=== PATIENT | male | born 1965 ===

== ENCOUNTER 2017-07-11 20:03 | Emergency (ER) | payer OTHER ==
[2017-07-11 20:15] VITALS: O2SAT 100
[2017-07-11] MEDS ORDERED: Oxycodone/Acetaminophen 5/325 mg Tab ONE (20:16)
[2017-07-11] MEDS ORDERED: Oxycodone/Acetaminophen 5/325 mg Tab PO STA (20:21)
--- NOTE | 2017-07-11 21:50 | C.PDOC ---
History Of Present Illness 52-year-old male, brought to the emergency department by EMS with complaints of wrist injury. As per EMS, patient sustained an injury to his right wrist after falling in snow today. Patient unable to give further Hx due to pain. Time Seen by Provider: 07/11/17 20:21 Chief Complaint (Nursing): Upper Extremity Problem/Injury History Per: Patient Past Medical History Reviewed: Historical Data, Nursing Documentation, Vital Signs Vital Signs: Last Vital Signs Temp 98.3 F 07/11/17 20:11 Pulse 67 07/11/17 20:11 Resp 20 07/11/17 20:11 BP 150/67 07/11/17 20:11 Pulse Ox 100 07/11/17 21:52 Family History: States: No Known Family Hx - Social History Hx Alcohol Use: Yes Hx Substance Use: No - Immunization History Hx Tetanus Toxoid Vaccination: No Hx Influenza Vaccination: No Hx Pneumococcal Vaccination: No Review Of Systems Musculoskeletal: Positive for: Other (right wrist pain and swelling) Physical Exam - Physical Exam Appears: Non-toxic, In Acute Distress, Other (Uncomfortable) Skin: Normal Color, Warm, Dry, No Rash Extremity: Tenderness, Deformity (right wrist. ), Swelling (dorsal aspect right wrist) Pulses: Left Radial: Normal, Right Radial: Normal Neurological/Psych: Oriented x3, Normal Speech, Normal Sensation ED Course And Treatment O2 Sat by Pulse Oximetry: 100 (RA) Pulse Ox Interpretation: Normal - Other Rad XR R wrist X-Ray: Interpreted by Me (comminuted impacted fracture of right wrist. ), Viewed By Me Progress Note: XR R wrist ordered and reviewed. Patient treated with PO percocet and Morphine IM. Case discussed with Dr Rizvi, recommends discharge patient with short arm splint and f/u in ortho clinic. Pt remained stable- Splint placed and pain control. Pt placed in splint by CP and checked by me. Advised to follow up with ortho Reassessment Condition: Improved Orthopedic Time Out: Side verified Procedure: Splint Type: Short Location: Arm Performed by: Mid-level Provider Diagnosis: Fracture Type: Closed, Comminuted, Angulated Location: Right Other:: Done by CP and checked by me, pt is neurovascular intact. pt placed in sling Bone: Radius Disposition Counseled Patient/Family Regarding: Diagnosis, Need For Followup, Rx Given - Disposition Referrals: [facility] at [place] [Outside] [facility], [facility] [Outside] Disposition: HOME/ ROUTINE Disposition Time: 00:17 Condition: STABLE Additional Instructions: Keep splint and sling until ortho follow up Please follow up in orthopedic clinic Take meds as directed Return to ER if worse Prescriptions: Acetaminophen with Codeine [Tylenol with Codeine #3 Tablet] 1 each PO QID #10 tablet Ibuprofen [Motrin Tab] 800 mg PO QID #20 tab Instructions: Wrist Fracture (DC) Forms: [employer] (Spanish) - Clinical Impression Clinical Impression: Wrist fracture, right - Scribe Statement The provider has reviewed the documentation as recorded by the Scribe (Litzy William) All medical record entries made by the Scribe were at my direction and personally dictated by me. I have reviewed the chart and agree that the record accurately reflects my personal performance of the history, physical exam, medical decision making, and the department course for this patient. I have also personally directed, reviewed, and agree with the discharge instructions and disposition.
[2017-07-11] MEDS ORDERED: Morphine 4 MG/ML VIAL IV STA (22:20)
[2017-07-11] MEDS ORDERED: Morphine 4 MG/ML VIAL ONE (22:27)
[2017-07-12 00:26] VITALS: BP 147/65; PULSE 70; RESP 18; TEMP 98
--- NOTE | 2017-07-12 08:05 | RAD ---
PROCEDURE: Radiographs of the right humerus, forearm, and wrist. HISTORY: pain, fall COMPARISON: None. FINDINGS: Technique: AP and lateral views of the humerus and forearm, lateral view of the elbow, and AP, lateral, and oblique views of the right wrist were obtained. BONES: There is a comminuted impaction fracture of the distal radial metaphysis with dorsal displacement of the dominant distal fracture fragment. Small fracture fragments are noted along volar aspect of the radius. Small avulsion fracture ulnar styloid at the base with mild distal displacement. No dislocation seen. Radiocarpal alignment is maintained. SOFT TISSUES: Soft tissue swelling noted adjacent to the fracture sites. OTHER FINDINGS: Visualized portions of the right lung field are clear. There is no elevation of fat pads on the lateral view of the elbow to suggest a joint effusion. IMPRESSION: Comminuted impaction fracture distal radial metaphysis. Avulsion fracture ulnar styloid.
== END 2017-07-12 00:45 | disposition home or self-care (01) ==
LOC: C.ER 20:03
DX: S52.591A Other fractures of lower end of right radius, initial encounter for closed fracture (principal); S52.611A Displaced fracture of right ulna styloid process, initial encounter for closed fracture; W00.0XXA Fall on same level due to ice and snow, initial encounter
CPT/HCPCS: 29125; 73060; 73090; 73110; 96372; 99285; J2270

== ENCOUNTER 2017-07-14 14:50 | Emergency (ER) | payer SELFPAY ==
[2017-07-14 14:59] VITALS: BP 112/86; PULSE 84; RESP 18; TEMP 97.4; O2SAT 100
--- NOTE | 2017-07-14 15:39 | C.PDOC ---
History Of Present Illness 52yo male, presents to ED with complaints of right hand wrist pain, stating he feels like his cast is too tight. Patient is requesting a refill of Tylenol #3 as well. He denies any fever, chills, new trauma or injury to his hand. He has no other medical complaints. Time Seen by Provider: 07/14/17 15:06 Chief Complaint (Nursing): Medical Clearance History Per: Patient History/Exam Limitations: no limitations Onset/Duration Of Symptoms: Days Current Symptoms Are (Timing): Still Present Quality: "Pain" Past Medical History Reviewed: Historical Data, Nursing Documentation, Vital Signs Vital Signs: Last Vital Signs Temp 97.4 F L 07/14/17 14:55 Pulse 84 07/14/17 14:55 Resp 18 07/14/17 14:55 BP 112/86 07/14/17 14:55 Pulse Ox 100 07/14/17 17:12 - Medical History PMH: No Chronic Diseases Surgical History: No Surg Hx Family History: States: Unknown Family Hx - Social History Hx Alcohol Use: Yes Hx Substance Use: No - Immunization History Hx Tetanus Toxoid Vaccination: No Hx Influenza Vaccination: No Hx Pneumococcal Vaccination: No Review Of Systems Except As Marked, All Systems Reviewed And Found Negative. Constitutional: Negative for: Fever, Chills Musculoskeletal: Positive for: Hand Pain (right hand and wrist pain) Physical Exam - Physical Exam Appears: Non-toxic, No Acute Distress Skin: Normal Color, Warm, Dry, Other (contact dermatitis noted to back of neck due to sling) Head: Atraumatic, Normacephalic Eye(s): bilateral: Normal Inspection Oral Mucosa: Moist Neck: Normal ROM, Supple Chest: Symmetrical Cardiovascular: Rhythm Regular Respiratory: Normal Breath Sounds Extremity: Tenderness (tenderness to movement of right hand), Swelling (right hand edematous), Other (right arm dangling without sling. bracelet knoted to right forearm without claps, snug and indented in edema) Neurological/Psych: Oriented x3 ED Course And Treatment O2 Sat by Pulse Oximetry: 100 (RA) Pulse Ox Interpretation: Normal Medical Decision Making Medical Decision Making: splint was removed and the bracelet removed The wrist was re-wrapped with extra padding and the splint re-applied with a looser FRIEDA wrap with much relief. pt's poor compliance w sling and/or dangling R arm may have contributed to increased R wrist/hand edema. elevation, ice, and sleeping with arm elevated on 3 pillows educated. contact dermatitis to the posterior neck from the sling- given a new sling and placed OVER clothing to avoid repeated contact dermatitis. Motrin 600 mg PO given considering pt's much improved pain and consumption of T#3 x 10 in 3 days (" took only 1 today") and pinpoint pupils will defer further narcotics prescriptions, and motrin/ice/elevation educated. pt already pending f/u @ [facility] on Sunday (2 days) 07/11/17: CHED for wrist fx (confirmed x-rays) and splinted. pt given morphine 2 mg IV x 4 and Percocet 1 Rx'd T#3 x 10 07/12: follow-up @ [place] ED refilled T#3 x 10 07/14: seeing refills Disposition Doctor Will See Patient In The: Office Counseled Patient/Family Regarding: Studies Performed, Diagnosis - Disposition Referrals: [facility] [place] [Outside] [facility] [Outside] Disposition: HOME/ ROUTINE Disposition Time: 15:54 Condition: GOOD Additional Instructions: your splint was removed and the bracelet removed The wrist was re-wrapped with extra padding and the splint re-applied with a looser FRIEDA wrap with much relief. poor compliance w sling and/or dangling R arm may have contributed to increased R wrist/hand edema. elevation, ice, and sleeping with arm elevated on 3 pillows educated. Return to ED or loosen the wrist splint of the fingers become edematous, bluish , painful. contact dermatitis to the posterior neck from the sling- Place new sling OVER clothing to avoid repeated contact dermatitis. Motrin 600 mg every 6 hours Already pending f/u @ [facility] on Sunday (2 days) Call [facility] for help with appointments as needed. Instructions: Wrist Fracture (DC) Forms: General Discharge Instructions, [facility] ([place]), Work Excuse - Clinical Impression Clinical Impression: Follow up - Scribe Statement The provider has reviewed the documentation as recorded by the Scribe (Kristie Araujo) Provider Attestation: All medical record entries made by the Scribe were at my direction and personally dictated by me. I have reviewed the chart and agree that the record accurately reflects my personal performance of the history, physical exam, medical decision making, and the department course for this patient. I have also personally directed, reviewed, and agree with the discharge instructions and disposition.
== END 2017-07-14 16:01 | disposition home or self-care (01) ==
LOC: C.ER 14:50
DX: Z47.89 Encounter for other orthopedic aftercare (principal)